=== PATIENT | male | born 1945 | race Hispanic/Latino ===

== ENCOUNTER 2017-03-31 06:53 | Outpatient (CLI) | payer MEDICARE ==
--- NOTE | 2017-04-02 08:28 | Vascular Lab Report ---
CAROTID DUPLEX STUDY: RIGHT PSVEDV CCA PROX:[id number] CCA DIST:[id number] ICA PROX: 7317 ICA MID: 7223 ICA DIST: 8125 ECA: 8125 VERT: 118 18 LEFT PSVEDV CCA PROX: 44 7 CCA DIST:122`20 ICA PROX: 8421 ICA MID:[id number] ICA DIST: 8425 ECA: 6920 VERT: 116 12 REASON FOR EXAM: 54. COMMENTS ON THE RIGHT: Doppler frequency analysis is consistent with 17 of the internal carotid artery. Minimal amount of plaque is seen. The common carotid artery is patent. The external carotid artery is patent. The vertebral artery has antegrade flow. COMMENTS ON THE LEFT: Doppler frequency analysis is consistent with 16 to 49 percent diameter reduction of the internal carotid artery. Minimal amount of plaque is seen. The common carotid artery is patent. The external carotid artery is patent. The vertebral artery has antegrade flow. IMPRESSION: Less than 50% diameter reduction in the internal carotid arteries bilaterally. Consider repeat carotid artery duplex in 12 months.
== END 2017-03-31 06:54 | disposition home or self-care (01) ==
LOC: VAS 06:53
PROVIDERS: ATTEND Internal Medicine
DX: I65.23 Occlusion and stenosis of bilateral carotid arteries (principal)
CPT/HCPCS: 93880

== ENCOUNTER 2019-03-14 08:22 | Outpatient (CLI) | payer MEDICARE ==
[2019-03-18 15:03] LABS: Vitamin D, 25-OH, D2 <4 ng/mL
== END 2019-03-14 08:23 | disposition home or self-care (01) ==
LOC: LAB 08:22
PROVIDERS: ATTEND Internal Medicine
DX: E11.9 Type 2 diabetes mellitus without complications (principal); I10 Essential (primary) hypertension; E78.2 Mixed hyperlipidemia; E55.9 Vitamin D deficiency, unspecified; E56.9 Vitamin deficiency, unspecified; E87.5 Hyperkalemia
CPT/HCPCS: 36415; 82306; 82607; 83036; 84132